=== PATIENT | female | born 1980 | race American Indian/Alaskan Native ===

== ENCOUNTER 2018-01-04 07:38 | Day surgery (SDC) | payer BC ==
[2018-01-04 09:25] LABS: Blood Urea Nitrogen 11 mg/dL (7-17)
[2018-01-04] MEDS ORDERED: NITROSTAT SL NR (09:30)
[2018-01-04] MEDS ORDERED: LOPRESSOR IV ONE ×2 (09:49→10:30)
[2018-01-04] MEDS ORDERED: ZOFRAN IV NR (10:02)
[2018-01-04 10:51] VITALS: BP 103/56
--- NOTE | 2018-01-05 10:12 | Cat Scan Report ---
LIMITED CT OF THE CHEST PER CT CORONARY ANGIOGRAPHY PROTOCOL: History: Chest pain. Limited CT of the chest per CT coronary angiography protocol is submitted. The cardiac portion of the exam has been previously interpreted by the [facility]. The included portions of the lungs appear clear without evidence for nodule, mass or infiltrate. The included pleural spaces are clear. No mediastinal or hilar adenopathy is evident. Included upper abdomen and solid abdominal organs are grossly within normal limits. IMPRESSION: Normal limited CT of the chest as noted.
--- NOTE | 2018-01-06 13:33 | Procedure Note ---
ORDERING PHYSICIAN: Carlito Courtney MD. INDICATION: Chest pain and shortness of breath. PROCEDURE: The patient received 0.4 mg of nitroglycerin sublingual for coronary vasodilation prior to scanning. Using 64 slice MDCT, low dose noncontrast calcium scoring CT was performed with prospective gating followed by contrast enhanced CTA at 0.6 mm thickness with retrospective gating and 100 mL Isovue 370 IV. The scan was performed from jewel through the base of the heart and data was reconstructed using multiple cardiac phases. FINDINGS: The overall quality of the scan is good, limited by the following artifact. 1.There is incorrect bolus timing noted with opacification of the right-sided structures. 2.Motion artifact caused by cardiac motion secondary to poor heart rate control. 3.The total calcium score is zero indicating the absence of calcified atherosclerotic plaque and a very low cardiovascular disease risk. 4.This is a right dominant circulation. 5.The left main originates from the left coronary cusp. 6.The left main has no evidence of obstructive disease. 7.Proximal LAD has no evidence of obstructive disease. 8.The first diagonal artery has no evidence of obstructive disease. 9.The mid LAD has no evidence of obstructive disease. 10.The distal LAD has no evidence of obstructive disease. 11.The proximal circumflex has no evidence of obstructive disease. 12.The mid circumflex has no evidence of obstructive disease. 13.OM1 has no evidence of obstructive disease. 14.The distal circumflex has no evidence of obstructive disease. 15.The right coronary artery originates from the right coronary cusp. 16.Proximal right coronary artery has no evidence of obstructive disease. 17.Mid right coronary artery has no evidence of obstructive disease. 18.Distal right coronary artery has no evidence of obstructive disease. 19.The PDA has no evidence of obstructive disease. 20.The PLVB has no evidence of obstructive disease. 21.Aorta: The sinus of Valsalva measures 32.8 x 32 mm. 22.The ascending aorta measures 28 x 27.1 mm. 23.The descending thoracic aorta measures 18.7 x 18 mm. 24.The aortic valve is trileaflet. 25.The pulmonary artery. 26.The main pulmonary artery measures 31.2 mm. 27.The right pulmonary artery measures 19.9 x 23.1 mm. 28.The left pulmonary artery measures 20.3 x 22.3 mm. 29.The pulmonary veins are normal entering the left atrium. 30.Atrial appendage exhibits no evidence of filling defect. 31.The left ventricle is normal in size and systolic function with an ejection fraction calculated at 70%. 32.The pericardium has no evidence of effusion. 33.The right ventricle and right atrium appears dilated. 34.Radiology overread of extracardiac structures. No abnormalities detected. IMPRESSION: Good quality scan limited by the following artifact. 1. Poor bolus timing. 2. Motion artifact secondary to cardiac motion due to poor heart rate control. 3. Zero calcium score indicating the absence of calcified atherosclerotic plaque and a very low disease, cardiovascular disease risk. 4. No evidence of obstructive coronary artery disease noted. 5. Evidence of dilated right ventricle, right atrium and main pulmonary artery. 6. Normal left ventricular size with an ejection fraction measured at 70%. 7. These results were discussed with ordering physician, Dr. Carlito Courtney. JOB# [id number] AMBER/GABRIELA
== END 2018-01-04 11:05 | disposition home or self-care (01) ==
LOC: CATHLABREC 07:38 → EDSTATUS 07:45 → CATHLABREC 11:05
PROVIDERS: ATTEND Internal Medicine Cardiovascular Disease
DX: R07.9 Chest pain, unspecified (principal); I10 Essential (primary) hypertension; I34.0 Nonrheumatic mitral (valve) insufficiency
CPT/HCPCS: 36415; 75574; 82565; 84520; 96374; J2405; Q9967